=== PATIENT | male | born 1935 | race Caucasian/White ===

== ENCOUNTER → 2016-07-30 | Outpatient (CLI) | payer OTHER | LOC: FIMAGING 08:40 | PROVIDERS: ATTEND Specialist | DX: N20.1 Calculus of ureter (principal) ==

== ENCOUNTER → 2016-08-01 | Outpatient (CLI) | payer OTHER | LOC: FLAB 10:39 | PROVIDERS: ATTEND Specialist | DX: N20.1 Calculus of ureter (principal); I70.0 Atherosclerosis of aorta; I70.8 Atherosclerosis of other arteries; I70.1 Atherosclerosis of renal artery; M51.26 Other intervertebral disc displacement, lumbar region; R91.1 Solitary pulmonary nodule ==

== ENCOUNTER → 2016-09-19 | Outpatient (CLI) | payer OTHER | LOC: BHFA 09:30 | PROVIDERS: ATTEND Internal Medicine Cardiovascular Disease | DX: I25.10 Atherosclerotic heart disease of native coronary artery without angina pectoris (principal); I10 Essential (primary) hypertension ==

== ENCOUNTER → 2016-10-15 | Outpatient (CLI) | payer OTHER | LOC: BHFA 13:00 | PROVIDERS: ATTEND Internal Medicine Cardiovascular Disease | DX: I25.10 Atherosclerotic heart disease of native coronary artery without angina pectoris (principal); I10 Essential (primary) hypertension | CPT/HCPCS: 78452; 93017; 93225; 93226; A9500; J2785 ==

== ENCOUNTER → 2017-12-11 | Outpatient (CLI) | payer OTHER | LOC: BHFA 10:45 | PROVIDERS: ATTEND Internal Medicine Cardiovascular Disease | DX: I25.10 Atherosclerotic heart disease of native coronary artery without angina pectoris (principal); I10 Essential (primary) hypertension ==

== ENCOUNTER → 2017-12-29 | Outpatient (CLI) | payer OTHER | LOC: BHFA 11:00 | PROVIDERS: ATTEND Internal Medicine Cardiovascular Disease | DX: R00.1 Bradycardia, unspecified (principal) ==